=== PATIENT | female | born 1945 | race Caucasian/White ===

== ENCOUNTER → 2017-12-25 14:03 | Outpatient (CLI) | payer MEDICARE, SELFPAY ==
--- NOTE | 2017-12-25 | DI.US.S_ITS ---
PROCEDURE: US PERIPH VENOUS LOW EXTREM LT INDICATIONS: LEFT LOWER LEG PAIN TECHNIQUE: Real-time imaging, as well as color and pulse Doppler interrogation, were performed of the lower extremity deep veins from the inguinal ligament to the popliteal fossa. COMPARISON: None. FINDINGS: The deep veins are normally compressible, and free of intraluminal thrombus. Color and pulse Doppler demonstrate normal phasic intraluminal flow. There is normal augmentation response to distal compression maneuver. There is a 64 mm x 14 mm 23 mm fluid collection in the left medial superior lower extremity. IMPRESSION: 1. No deep venous thrombosis. 2. Fluid collection in the left lower extremity. This could represent a cyst. Other etiologies such as abscess or hematoma cannot be excluded, although less likely given homogenous appearance. Dictated by: Felipa Leon M.D. on 12/25/2017 at 14:35 Approved by: Felipa Leon M.D. on 12/25/2017 at 14:42
== END ==
PROVIDERS: Family Provider Physician Assistant; PCP Physician Assistant; Visit Provider Physician Assistant
DX: M79.662 Pain in left lower leg (principal)
CPT/HCPCS: 93971

== ENCOUNTER → 2018-02-28 08:08 | Outpatient (CLI) | payer MEDICARE, SELFPAY ==
--- NOTE | 2018-02-28 | DI.MG.S_ITS ---
BILATERAL DIGITAL SCREENING MAMMOGRAM 3D/2D WITH CAD: 02/28/2018 CLINICAL: Routine screening. Family history of breast cancer. Comparison is made to exams dated: 01/14/2017 mammogram, 01/10/2016 mammogram, and 01/06/2015 mammogram - [facility]. The tissue of both breasts is heterogeneously dense. This may lower the sensitivity of mammography. Current study was also evaluated with a Computer Aided Detection (CAD) system. There are benign vascular calcifications in both breasts. No significant masses, calcifications, or other findings are seen in either breast. There has been no significant interval change. IMPRESSION: There is no mammographic evidence of malignancy. A 1 year screening mammogram is recommended. This exam was interpreted at Station ID: [id number]. NOTE: For mammograms, a report in lay terms will be sent to the patient. Approximately 15% of breast malignancies will not be visualized mammographically. In the management of a palpable breast mass, a negative mammogram must not discourage biopsy of a clinically suspicious lesion. Electronically Signed By: Azeb castro/jamari:02/28/2018 10:03:38 letter sent: Normal Exam ACR BI-RADS Category 2: Benign Finding(s) 3342F
== END ==
PROVIDERS: Family Provider Physician Assistant; PCP Physician Assistant; Visit Provider Physician Assistant
DX: Z12.31 Encounter for screening mammogram for malignant neoplasm of breast (principal); Z80.3 Family history of malignant neoplasm of breast
CPT/HCPCS: 77063; 77067

== ENCOUNTER → 2018-12-30 14:00 | Outpatient (CLI) | payer MEDICARE, SELFPAY ==
--- NOTE | 2018-12-30 | DI.CT.S_ITS ---
PROCEDURE: CT ABDOMEN PELVIS W CON INDICATIONS: Right lower quadrant pain TECHNIQUE: After the administration of oral and intravenous contrast, 5 mm thick sections acquired from the diaphragms to the symphysis. 5 mm thick coronal and sagittal reformats were performed. For radiation dose reduction, the following was used: automated exposure control, adjustment of mA and/or kV according to patient size. COMPARISON: [facility], CT, CT-IVP, 02/28/2010, 8:45. FINDINGS: Image quality: Excellent. ABDOMEN: Lung bases: Lung bases are clear. Heart size is normal. Solid organs: Liver is normal in size and enhancement. Gallbladder appears normal. Biliary system is non-dilated. Pancreas enhances normally. Spleen is normal in size and enhancement. No adrenal nodules. Kidneys are normal in size and enhancement, without hydronephrosis. Peritoneum and bowel: Stomach, small bowel, and colon loops are normal in caliber and wall thickness. No free fluid or air. Nodes and vessels: No retroperitoneal or mesenteric adenopathy. Aorta and inferior vena cava are normal in caliber. Miscellaneous: No ventral hernias. PELVIS: Genitourinary: Bladder wall thickness is normal. Miscellaneous: No inguinal hernias or adenopathy. A normal or abnormal appendix could not be found. However there is no secondary CT evidence of acute appendicitis. Colonic obstipation is present on the right, most prominent at the cecum, as a potential etiology for the reported right lower quadrant pain. Bones: No suspicious bony lesions. No vertebral body compression fractures. IMPRESSION: 1. No CT evidence of acute appendicitis. 2. No identified adnexal pathology in this patient. Incidental note is made of a tarsal calcified small uterine fundal fibroid. 3. Asymmetric colonic obstipation most prominent at the right colon and best seen at the cecum. This is a reasonable potential etiology for reported persistent right lower quadrant pain. Dictated by: Sung Burgos M.D. on 12/30/2018 at 16:24 Approved by: Sung Burgos M.D. on 12/30/2018 at 16:28
== END ==
PROVIDERS: Family Provider Physician Assistant; PCP Physician Assistant; Visit Provider Physician Assistant
DX: R10.31 Right lower quadrant pain (principal); K59.00 Constipation, unspecified; D25.9 Leiomyoma of uterus, unspecified
CPT/HCPCS: 74177; Q9967

== ENCOUNTER → 2019-03-02 14:23 | Outpatient (CLI) | payer MEDICARE, SELFPAY ==
--- NOTE | 2019-03-02 | DI.MG.S_ITS ---
BILATERAL DIGITAL SCREENING MAMMOGRAM 3D/2D WITH CAD: 03/02/2019 CLINICAL: Routine screening. Family history of breast cancer. Comparison is made to exams dated: 02/28/2018 mammogram, 01/14/2017 mammogram, 01/10/2016 mammogram, 01/06/2015 mammogram, 01/04/2014 mammogram, and 11/03/2008 mammogram - [facility]. The tissue of both breasts is heterogeneously dense. This may lower the sensitivity of mammography. Current study was also evaluated with a Computer Aided Detection (CAD) system. There are benign vascular calcifications in both breasts. No significant masses, calcifications, or other findings are seen in either breast. There has been no significant interval change. IMPRESSION: There is no mammographic evidence of malignancy. A 1 year screening mammogram is recommended. This exam was interpreted at Station ID: [id number]. NOTE: For mammograms, a report in lay terms will be sent to the patient. Approximately 15% of breast malignancies will not be visualized mammographically. In the management of a palpable breast mass, a negative mammogram must not discourage biopsy of a clinically suspicious lesion. Electronically Signed By: Dustin alvarez/jamari:03/03/2019 09:21:01 letter sent: Normal Exam ACR BI-RADS Category 2: Benign Finding(s) 3342F
== END ==
PROVIDERS: PCP Physician Assistant; Visit Provider Physician Assistant
DX: Z12.31 Encounter for screening mammogram for malignant neoplasm of breast (principal); Z80.3 Family history of malignant neoplasm of breast
CPT/HCPCS: 77063; 77067

== ENCOUNTER → 2019-05-19 09:41 | Outpatient (CLI) | payer MEDICARE, SELFPAY ==
--- NOTE | 2019-05-19 | DI.RAD.S_ITS ---
PROCEDURE: XR KNEE LT 1TO2V INDICATIONS: PAIN IN LEFT KNEE TECHNIQUE: 2 views of the knee were acquired. COMPARISON: [facility], , KNEE 3V LEFT, 07/02/2013, 11:36. [facility], , KNEE 1-2 VIEWS LEFT, 01/29/2008, 9:00. FINDINGS: Bones: No fractures or dislocations. No suspicious bony lesions. Prior left total knee arthroplasty shows no evidence of device loosening or disruption. Soft tissues: No joint effusion. No suspicious soft tissue calcifications. IMPRESSION: No sign of arthroplasty device loosening, or adjacent joint effusion. Source of new pain is not identified. Dictated by: Sung Burgos M.D. on 05/19/2019 at 11:01 Approved by: Sung Burgos M.D. on 05/19/2019 at 11:01
== END ==
PROVIDERS: PCP Physician Assistant; Referring Provider Physician Assistant; Visit Provider Physician Assistant
DX: M25.562 Pain in left knee (principal); Z96.652 Presence of left artificial knee joint
CPT/HCPCS: 73560

== ENCOUNTER → 2019-05-26 15:09 | Outpatient (ROUT) | payer MEDICARE, SELFPAY | PROVIDERS: PCP Physician Assistant; Visit Provider Internal Medicine | DX: R39.9 Unspecified symptoms and signs involving the genitourinary system (principal) | CPT/HCPCS: 87077; 87086; 87186 ==

== ENCOUNTER → 2019-06-04 13:39 | Outpatient (ROUT) | payer MEDICARE, SELFPAY ==
[2019-06-04 14:09] LABS: Add Manual Diff / Slide Review NO; Basophils Absolute Auto 0 /uL (0-100); Basophils Percent Auto 0.7 % (0-2); Eosinophils Absolute Auto 100 /uL (0-450); Eosinophils Percent Auto 1.7 % (2-4); Hematocrit 37.4 % (36-46); Hemoglobin 12.9 g/dL (12.0-16.0); Lymphocytes Absolute Auto 1000 /uL (1100-4500); Lymphocytes Percent Auto 21.7 % (25-40); Mean Corpuscular HGB Conc 34.5 % (30-36); Mean Corpuscular Volume 98.6 fL (80-100); Monocytes Absolute Auto 500 /uL (0-900); Monocytes Percent Auto 10.9 % (3-14); Neutrophils Absolute Auto 3100 /uL (1500-7000); Platelet Count 247 X10^3/uL (150-400); Red Blood Cell Count 3.79 X10^6/uL (4.0-5.2); Red Cell Distribution Width 12.9 % (11.6-14.8); White Blood Cell Count 4.7 X10^3/uL (4.5-11.0)
[2019-06-04 14:15] LABS: Alanine Aminotransferase 17 IU/L (<35); Albumin 4.3 g/dL (3.5-5.0); Albumin Globulin Ratio 1.5 (1.0-2.8); Alkaline Phosphatase 75 U/L (38-126); Aspartate Aminotransferase 33 IU/L (14-36); Bilirubin Total 0.5 mg/dL (0.2-1.3); Blood Urea Nitrogen 10 mg/dL (7-17); Carbon Dioxide 27 mmol/L (22-32); Chloride 97 mmol/L (98-107); Estimated Glomerular Filt Rate > 60.0 mL/min (>60); Globulin 2.8 g/dL (1.7-4.1); Glucose 100 mg/dL (80-110); HEMOLYSIS < 15 (0-50); Potassium 4.5 mmol/L (3.4-5.1); Sodium 135 mmol/L (137-145); Total Protein 7.1 g/dL (6.3-8.2)
[2019-06-04 14:43] LABS: TSH w/ Reflex to FT4 1.67 uIU/mL (0.47-4.68)
== END ==
PROVIDERS: PCP Physician Assistant; Visit Provider Physician Assistant
DX: N30.00 Acute cystitis without hematuria (principal); E78.2 Mixed hyperlipidemia; I10 Essential (primary) hypertension; R53.83 Other fatigue; R39.9 Unspecified symptoms and signs involving the genitourinary system
CPT/HCPCS: 80053; 84443; 85025; 87086

== ENCOUNTER → 2019-12-31 07:50 | Outpatient (CLI) | payer MEDICARE, SELFPAY ==
[2019-12-31 08:30] LABS: Add Manual Diff / Slide Review NO; Basophils Absolute Auto 0 /uL (0-100); Basophils Percent Auto 0.5 % (0-2); Eosinophils Absolute Auto 100 /uL (0-450); Hematocrit 36.6 % (36-46); Hemoglobin 12.5 g/dL (12.0-16.0); Lymphocytes Absolute Auto 1000 /uL (1100-4500); Lymphocytes Percent Auto 23.4 % (25-40); Mean Corpuscular HGB Conc 34.1 % (30-36); Mean Corpuscular Hemoglobin 34.2 PG (26-34); Mean Corpuscular Volume 100.2 fL (80-100); Monocytes Absolute Auto 400 /uL (0-900); Neutrophils Absolute Auto 2800 /uL (1500-7000); Neutrophils Percent Auto 65.1 % (50-75); Platelet Count 209 X10^3/uL (150-400); Red Blood Cell Count 3.66 X10^6/uL (4.0-5.2); Red Cell Distribution Width 13.1 % (11.6-14.8); White Blood Cell Count 4.4 X10^3/uL (4.5-11.0)
[2019-12-31 08:41] LABS: Alanine Aminotransferase 14 IU/L (<35); Albumin Globulin Ratio 1.5 (1.0-2.8); Alkaline Phosphatase 71 U/L (38-126); Aspartate Aminotransferase 27 IU/L (14-36); BUN Creatinine Ratio 19.3 (6-22); Bilirubin Total 0.8 mg/dL (0.2-1.3); Blood Urea Nitrogen 11 mg/dL (7-17); Calcium 9.3 mg/dL (8.4-10.2); Carbon Dioxide 31 mmol/L (22-32); Chloride 102 mmol/L (98-107); Cholesterol 169 mg/dL (140-199); Estimated Glomerular Filt Rate > 60.0 mL/min (>60); Globulin 2.7 g/dL (1.7-4.1); Glucose 96 mg/dL (80-110); HDL Cholesterol 81 mg/dL (40-60); HEMOLYSIS < 15 (0-50); LDL Cholesterol Calculated 76 mg/dL (<100); Potassium 4.4 mmol/L (3.4-5.1); Sodium 137 mmol/L (137-145); Total Protein 6.7 g/dL (6.3-8.2); Triglycerides 60 mg/dL (35-150)
== END ==
PROVIDERS: PCP Physician Assistant; Referring Provider Physician Assistant; Visit Provider Physician Assistant
DX: I10 Essential (primary) hypertension (principal); E78.2 Mixed hyperlipidemia
CPT/HCPCS: 36415; 80053; 80061; 85025

== ENCOUNTER → 2020-03-15 10:23 | Outpatient (CLI) | payer MEDICARE, SELFPAY ==
--- NOTE | 2020-03-15 | DI.MG.S_ITS ---
BILATERAL DIGITAL SCREENING MAMMOGRAM 3D/2D WITH CAD: 03/15/2020 CLINICAL: Routine screening. Family history of breast cancer. Comparison is made to exams dated: 03/02/2019 mammogram, 02/28/2018 mammogram, and 01/14/2017 mammogram - [facility]. The tissue of both breasts is heterogeneously dense. This may lower the sensitivity of mammography. Current study was also evaluated with a Computer Aided Detection (CAD) system. There are benign vascular calcifications in both breasts. No significant masses, calcifications, or other findings are seen in either breast. There has been no significant interval change. IMPRESSION: BENIGN There is no mammographic evidence of malignancy. A 1 year screening mammogram is recommended. This exam was interpreted at Station ID: [id number]. NOTE: For mammograms, a report in lay terms will be sent to the patient. Approximately 15% of breast malignancies will not be visualized mammographically. In the management of a palpable breast mass, a negative mammogram must not discourage biopsy of a clinically suspicious lesion. Electronically Signed By: Luis Daniel Nevarez acr/penrad:03/15/2020 13:23:10 letter sent: Normal Exam ACR BI-RADS Category 2: Benign Finding(s) 3342F
== END ==
PROVIDERS: PCP Physician Assistant; Referring Provider Physician Assistant; Visit Provider Physician Assistant
DX: Z12.31 Encounter for screening mammogram for malignant neoplasm of breast (principal); Z80.3 Family history of malignant neoplasm of breast
CPT/HCPCS: 77063; 77067

== ENCOUNTER → 2020-08-15 08:18 | Outpatient (CLI) | payer OTHER, SELFPAY ==
[2020-08-15 09:20] LABS: Add Manual Diff / Slide Review NO; Basophils Absolute Auto 0 /uL (0-100); Basophils Percent Auto 0.9 % (0-2); Eosinophils Absolute Auto 100 /uL (0-450); Eosinophils Percent Auto 2.8 % (2-4); Hematocrit 35.7 % (36-46); Hemoglobin 12.4 g/dL (12.0-16.0); Lymphocytes Absolute Auto 1000 /uL (1100-4500); Lymphocytes Percent Auto 27.5 % (25-40); Mean Corpuscular HGB Conc 34.7 % (30-36); Mean Corpuscular Hemoglobin 34.5 PG (26-34); Mean Corpuscular Volume 99.5 fL (80-100); Monocytes Absolute Auto 400 /uL (0-900); Monocytes Percent Auto 11.2 % (3-14); Neutrophils Absolute Auto 2200 /uL (1500-7000); Neutrophils Percent Auto 57.6 % (50-75); Platelet Count 209 X10^3/uL (150-400); Red Blood Cell Count 3.59 X10^6/uL (4.0-5.2); Red Cell Distribution Width 12.8 % (11.6-14.8); White Blood Cell Count 3.8 X10^3/uL (4.5-11.0)
[2020-08-15 10:24] LABS: Alanine Aminotransferase 15 IU/L (<35); Albumin Globulin Ratio 1.4 (1.0-2.8); Alkaline Phosphatase 61 U/L (38-126); Aspartate Aminotransferase 29 IU/L (14-36); Bilirubin Total 0.7 mg/dL (0.2-1.3); Blood Urea Nitrogen 11 mg/dL (7-17); Calcium 9.7 mg/dL (8.4-10.2); Carbon Dioxide 26 mmol/L (22-32); Chloride 102 mmol/L (98-107); Cholesterol 183 mg/dL (140-199); Estimated Glomerular Filt Rate > 60.0 mL/min (>60); Globulin 2.8 g/dL (1.7-4.1); Glucose 92 mg/dL (80-110); HDL Cholesterol 78 mg/dL (40-60); HEMOLYSIS < 15 (0-50); LDL Cholesterol Calculated 94 mg/dL (<100); Potassium 4.6 mmol/L (3.4-5.1); Sodium 135 mmol/L (137-145); Total Protein 6.8 g/dL (6.3-8.2); Triglycerides 54 mg/dL (35-150)
== END ==
PROVIDERS: PCP Physician Assistant; Referring Provider Physician Assistant; Visit Provider Physician Assistant
DX: I10 Essential (primary) hypertension (principal); E78.2 Mixed hyperlipidemia
CPT/HCPCS: 36415; 80053; 80061; 85025

== ENCOUNTER → 2020-09-19 09:35 | Outpatient (CLI) | payer OTHER, SELFPAY ==
[2020-09-19 10:37] LABS: Add Manual Diff / Slide Review NO; Basophils Absolute Auto 0 /uL (0-100); Basophils Percent Auto 0.5 % (0-2); Eosinophils Absolute Auto 100 /uL (0-450); Eosinophils Percent Auto 1.7 % (2-4); Hematocrit 35.1 % (36-46); Hemoglobin 12.1 g/dL (12.0-16.0); Lymphocytes Absolute Auto 800 /uL (1100-4500); Lymphocytes Percent Auto 15.1 % (25-40); Mean Corpuscular HGB Conc 34.4 % (30-36); Mean Corpuscular Hemoglobin 34.3 PG (26-34); Mean Corpuscular Volume 99.5 fL (80-100); Monocytes Absolute Auto 600 /uL (0-900); Monocytes Percent Auto 10.5 % (3-14); Neutrophils Absolute Auto 3900 /uL (1500-7000); Neutrophils Percent Auto 72.2 % (50-75); Platelet Count 221 X10^3/uL (150-400); Red Blood Cell Count 3.52 X10^6/uL (4.0-5.2); Red Cell Distribution Width 12.8 % (11.6-14.8); White Blood Cell Count 5.4 X10^3/uL (4.5-11.0)
[2020-09-19 10:47] LABS: Alanine Aminotransferase 14 IU/L (<35); Albumin 4.1 g/dL (3.5-5.0); Albumin Globulin Ratio 1.5 (1.0-2.8); Alkaline Phosphatase 64 U/L (38-126); Aspartate Aminotransferase 27 IU/L (14-36); BUN Creatinine Ratio 18.9 (6-22); Bilirubin Total 0.5 mg/dL (0.2-1.3); Blood Urea Nitrogen 10 mg/dL (7-17); Calcium 9.2 mg/dL (8.4-10.2); Carbon Dioxide 27 mmol/L (22-32); Chloride 97 mmol/L (98-107); Cholesterol 172 mg/dL (140-199); Estimated Glomerular Filt Rate > 60.0 mL/min (>60); Globulin 2.8 g/dL (1.7-4.1); Glucose 100 mg/dL (80-110); HDL Cholesterol 66 mg/dL (40-60); HEMOLYSIS < 15 (0-50); LDL Cholesterol Calculated 92 mg/dL (<100); Potassium 4.1 mmol/L (3.4-5.1); Sodium 130 mmol/L (137-145); Total Protein 6.9 g/dL (6.3-8.2); Triglycerides 69 mg/dL (35-150)
== END ==
PROVIDERS: PCP Physician Assistant; Referring Provider Physician Assistant; Visit Provider Physician Assistant
DX: I10 Essential (primary) hypertension (principal); E78.2 Mixed hyperlipidemia
CPT/HCPCS: 36415; 80053; 80061; 85025

== ENCOUNTER → 2020-09-20 10:38 | Outpatient (CLI) | payer OTHER, SELFPAY ==
[2020-09-20 11:50] LABS: Appearance Urine UA SL CLOUDY; Bilirubin Urine UA NEGATIVE (NEGATIVE); Color Urine UA YELLOW; Glucose Urine UA NEGATIVE (Negative); Ketones Urine UA NEGATIVE (NEGATIVE); Leukocyte Esterase Urine UA 3+ (NEGATIVE); Nitrite Urine UA NEGATIVE (Negative); Occult Blood Urine UA TRACE-LYSED (Negative); Protein Urine UA NEGATIVE (Negative); Urobilinogen Urine UA 0.2 E.U./dL (0.2)
[2020-09-20 13:27] LABS: WBC Urine 30-100/HPF (0-5/HPF)
[2020-09-20 13:28] LABS: Bacteria Urine Many (>30); Culture Indicated Urine Specimen Cultured; RBC Urine 0-1/HPF (0-5/HPF)
== END ==
PROVIDERS: PCP Physician Assistant; Referring Provider Physician Assistant; Visit Provider Physician Assistant
DX: R35.0 Frequency of micturition (principal)
CPT/HCPCS: 36415; 81001; 87077; 87086; 87186

== ENCOUNTER → 2020-10-03 07:46 | Outpatient (CLI) | payer OTHER, SELFPAY ==
[2020-10-03 08:51] LABS: Add Manual Diff / Slide Review NO; Basophils Absolute Auto 0 /uL (0-100); Basophils Percent Auto 0.9 % (0-2); Eosinophils Absolute Auto 100 /uL (0-450); Eosinophils Percent Auto 2.6 % (2-4); Hematocrit 34.9 % (36-46); Hemoglobin 11.9 g/dL (12.0-16.0); Lymphocytes Absolute Auto 1000 /uL (1100-4500); Lymphocytes Percent Auto 25.9 % (25-40); Mean Corpuscular HGB Conc 34.2 % (30-36); Mean Corpuscular Hemoglobin 34.2 PG (26-34); Monocytes Absolute Auto 400 /uL (0-900); Monocytes Percent Auto 10.9 % (3-14); Neutrophils Absolute Auto 2200 /uL (1500-7000); Neutrophils Percent Auto 59.7 % (50-75); Platelet Count 237 X10^3/uL (150-400); Red Blood Cell Count 3.49 X10^6/uL (4.0-5.2); Red Cell Distribution Width 13.1 % (11.6-14.8); White Blood Cell Count 3.7 X10^3/uL (4.5-11.0)
[2020-10-03 09:35] LABS: Alanine Aminotransferase 13 IU/L (<35); Albumin 3.7 g/dL (3.5-5.0); Albumin Globulin Ratio 1.4 (1.0-2.8); Alkaline Phosphatase 54 U/L (38-126); Aspartate Aminotransferase 23 IU/L (14-36); Bilirubin Total 0.4 mg/dL (0.2-1.3); Blood Urea Nitrogen 14 mg/dL (7-17); Calcium 9.5 mg/dL (8.4-10.2); Carbon Dioxide 25 mmol/L (22-32); Chloride 101 mmol/L (98-107); Estimated Glomerular Filt Rate > 60.0 mL/min (>60); Globulin 2.6 g/dL (1.7-4.1); Glucose 99 mg/dL (80-110); HEMOLYSIS < 15 (0-50); Potassium 4.6 mmol/L (3.4-5.1); Sodium 133 mmol/L (137-145); Total Protein 6.3 g/dL (6.3-8.2)
== END ==
PROVIDERS: PCP Physician Assistant; Referring Provider Physician Assistant; Visit Provider Physician Assistant
DX: E87.1 Hypo-osmolality and hyponatremia (principal)
CPT/HCPCS: 36415; 80053; 85025

== ENCOUNTER → 2021-04-03 14:52 | Outpatient (CLI) | payer OTHER, SELFPAY ==
--- NOTE | 2021-04-03 14:53 | DI.MG.S_ITS ---
BILATERAL DIGITAL SCREENING MAMMOGRAM 3D/2D WITH CAD: 04/03/2021 CLINICAL: Routine screening. Family history of breast cancer. Comparison is made to exams dated: 03/15/2020 mammogram, 03/02/2019 mammogram, and 02/28/2018 mammogram - [facility]. The tissue of both breasts is heterogeneously dense. This may lower the sensitivity of mammography. Current study was also evaluated with a Computer Aided Detection (CAD) system. There are benign vascular calcifications in both breasts. No significant masses, calcifications, or other findings are seen in either breast. There has been no significant interval change. IMPRESSION: BENIGN There is no mammographic evidence of malignancy. A 1 year screening mammogram is recommended. This exam was interpreted at Station ID: [id number]. NOTE: For mammograms, a report in lay terms will be sent to the patient. Approximately 15% of breast malignancies will not be visualized mammographically. In the management of a palpable breast mass, a negative mammogram must not discourage biopsy of a clinically suspicious lesion. Electronically Signed By: Kirill Mike M.D., jr/jamari:04/03/2021 15:12:59 letter sent: Normal Exam ACR BI-RADS Category 2: Benign Finding(s) 3342F
== END ==
PROVIDERS: PCP Physician Assistant; Referring Provider Physician Assistant; Visit Provider Physician Assistant
DX: Z12.31 Encounter for screening mammogram for malignant neoplasm of breast (principal); Z80.3 Family history of malignant neoplasm of breast
CPT/HCPCS: 77063; 77067

== ENCOUNTER → 2022-04-05 09:18 | Outpatient (CLI) | payer OTHER, SELFPAY ==
--- NOTE | 2022-04-05 09:21 | DI.MG.S_ITS ---
BILATERAL DIGITAL SCREENING MAMMOGRAM 3D/2D WITH CAD: 04/05/2022 CLINICAL: Routine screening. Family history of breast cancer. Comparison is made to exams dated: 04/03/2021 mammogram, 03/15/2020 mammogram, and 03/02/2019 mammogram - [facility]. Both breasts are heterogeneously dense, which may obscure small masses (category c / 51-75% glandular tissue). Current study was also evaluated with a Computer Aided Detection (CAD) system. There are benign vascular calcifications in both breasts. No significant masses, calcifications, or other findings are seen in either breast. There has been no significant interval change. IMPRESSION: BENIGN There is no mammographic evidence of malignancy. A 1 year screening mammogram is recommended. Based on the Tyrer Cuzick model (a risk assessment model) the patient's lifetime risk is 4.0% and her 10 year risk is 0.0%. According to the ACR, ACS, and NCCN guidelines, an annual breast MRI exam along with mammogram is recommended if the patient's lifetime risk is 20% or greater. This exam was interpreted at Station ID: [id number]. NOTE: For mammograms, a report in lay terms will be sent to the patient. Approximately 15% of breast malignancies will not be visualized mammographically. In the management of a palpable breast mass, a negative mammogram must not discourage biopsy of a clinically suspicious lesion. Electronically Signed By: Kirill Mike M.D., jr/jamari:04/05/2022 11:02:03 letter sent: Normal Exam ACR BI-RADS Category 2: Benign Finding(s) 3342F
== END ==
PROVIDERS: PCP Physician Assistant; Referring Provider Physician Assistant; Visit Provider Physician Assistant
DX: Z12.31 Encounter for screening mammogram for malignant neoplasm of breast (principal); Z80.3 Family history of malignant neoplasm of breast
CPT/HCPCS: 77063; 77067

== ENCOUNTER → 2022-05-10 09:56 | Outpatient (CLI) | payer OTHER, SELFPAY ==
--- NOTE | 2022-05-10 | DI.CT.S_ITS ---
PROCEDURE: CT SINUS SCREEN WO CON INDICATIONS: Chronic pansinusitis TECHNIQUE: Noncontrast 3.0 mm axial images acquired from the frontal sinuses to the mid-sella, with coronal and sagittal reformats. For radiation dose reduction, the following was used: automated exposure control, adjustment of mA and/or kV according to patient size. COMPARISON: [facility], CT, SINUS WITHOUT CONTRAST, 03/14/2011, 9:18. [facility], CT, HEAD WITHOUT CONTRAST, 03/14/2011, 9:18. FINDINGS: Image quality: Excellent. Maxillary Sinuses: No bony remodeling or destruction. Sinuses are clear. Ethmoid Air Cells: No bony remodeling or destruction. Sinuses are clear. Sphenoid Sinuses: No bony remodeling or destruction. Sinuses are clear. Frontal Sinuses: No bony remodeling or destruction. Sinuses are clear. 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 Miscellaneous: Visualized intra-orbital contents are normal. 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 There is mild rightward nasal septal deviation. IMPRESSION: No significant active paranasal sinus disease is seen. 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 Dictated by: Liborio Dowling M.D. on 05/10/2022 at 9:58 Approved by: Liborio Dowling M.D. on 05/10/2022 at 10:00
== END ==
PROVIDERS: PCP Physician Assistant; Referring Provider Otolaryngology; Visit Provider Otolaryngology
DX: J32.4 Chronic pansinusitis (principal); R09.82 Postnasal drip; R09.89 Other specified symptoms and signs involving the circulatory and respiratory systems; R51.9 Headache, unspecified; J34.2 Deviated nasal septum; J34.3 Hypertrophy of nasal turbinates
CPT/HCPCS: 70486

== ENCOUNTER → 2022-06-28 14:04 | Outpatient (CLI) | payer MEDICARE, SELFPAY | PROVIDERS: PCP Physician Assistant; Visit Provider Nurse Practitioner Family | DX: R30.0 Dysuria (principal); N89.8 Other specified noninflammatory disorders of vagina | CPT/HCPCS: 87086; 87210 ==

== ENCOUNTER → 2022-10-13 10:14 | Outpatient (CLI) | payer MEDICARE, SELFPAY | PROVIDERS: PCP Physician Assistant; Visit Provider Registered Nurse | DX: R30.0 Dysuria (principal) | CPT/HCPCS: 87086; 87210 ==

== ENCOUNTER → 2023-01-16 09:21 | Outpatient (CLI) | payer MEDICARE, SELFPAY ==
--- NOTE | 2023-01-16 | DI.RAD.S_ITS ---
PROCEDURE: XR SHOULDER RT MIN 2V INDICATIONS: SHOULDER PAIN TECHNIQUE: 3 views of the shoulder were acquired. COMPARISON: None. FINDINGS: Bones: No fractures or dislocations. No suspicious bony lesions. Moderate acromioclavicular and glenohumeral joint degeneration. Visualized ribs appear intact. Soft tissues: Calcifications over the humeral head suspicious for rotator cuff calcific tendinitis. IMPRESSION: 1. Moderate osteoarthritis. 2. Suspect rotator cuff tendinitis. Dictated by: Rafiq Chambers M.D. on 01/16/2023 at 11:43 Approved by: Rfaiq Chambers M.D. on 01/16/2023 at 11:46
== END ==
PROVIDERS: PCP Physician Assistant; Referring Provider Physician Assistant; Visit Provider Physician Assistant
DX: M19.011 Primary osteoarthritis, right shoulder (principal)
CPT/HCPCS: 73030

== ENCOUNTER → 2023-02-07 11:47 | Outpatient (CLI) | payer MEDICARE, SELFPAY ==
[2023-02-07 12:10] LABS: Estimated Glomerular Filt Rate > 60 mL/min (>60)
== END ==
PROVIDERS: PCP Physician Assistant; Referring Provider Radiology Diagnostic Radiology; Visit Provider Radiology Diagnostic Radiology
DX: R10.31 Right lower quadrant pain (principal)
CPT/HCPCS: 36415; 82565

== ENCOUNTER → 2023-02-09 10:19 | Outpatient (CLI) | payer OTHER, SELFPAY ==
--- NOTE | 2023-02-09 10:21 | DI.CT.S_ITS ---
PROCEDURE: CT ABDOMEN PELVIS W CON INDICATIONS: Right lower quadrant pain TECHNIQUE: After the administration of oral and intravenous contrast, axial sections were acquired from the lung bases to the pubic symphysis. Coronal and sagittal reformats were performed. For radiation dose reduction, the following was used: automated exposure control, adjustment of mA and/or kV according to patient size. COMPARISON:[facility], CT, CT ABDOMEN PELVIS W CON, 12/30/2018, 15:06. FINDINGS: Image quality: Excellent. Lung bases: Unremarkable. Heart: No significant findings. ABDOMEN: Liver: Unremarkable. Gallbladder: Unremarkable. Biliary ducts: Unremarkable. Pancreas: Unremarkable. Spleen: Unremarkable. Adrenal Glands: Unremarkable. Kidneys and Ureters: Unremarkable. Stomach and Bowel: Stomach, small bowel loops, and colon are unremarkable. Moderately large diffuse fecal load. The appendix is not identified. There are no secondary signs of acute appendicitis. Peritoneum: No abnormal intraperitoneal fluid. No free air. Ventral Wall: No hernia. Abdominal Nodes: No retroperitoneal or mesenteric adenopathy by size criteria. Vessels: Aorta and inferior vena cava are normal in size. PELVIS: Pelvic Organs: There is a calcified uterine fibroid. There is possible diffuse thickening the endometrium of the uterus. This is not definite. Bladder: Unremarkable. Pelvic Nodes: No enlarged lymph nodes. Miscellaneous: No inguinal hernias are seen. Bones: Lumbar degenerative change. No lytic or blastic bony lesions. No compression fractures. IMPRESSION: 1. No acute abdominal process. 2. Moderately large fecal load. 3. Question diffuse thickening the endometrial cavity of the uterus. This is not definite. Comment: Recommend pelvic ultrasound for evaluation of the endometrial thickness Dictated by: John Garcia M.D. on 02/09/2023 at 14:30 Approved by: John Garcia M.D. on 02/09/2023 at 14:34
== END ==
PROVIDERS: PCP Physician Assistant; Referring Provider Physician Assistant; Visit Provider Physician Assistant
DX: R10.31 Right lower quadrant pain (principal); D25.9 Leiomyoma of uterus, unspecified
CPT/HCPCS: 74177; Q9967

== ENCOUNTER → 2023-02-19 10:15 | Outpatient (CLI) | payer OTHER, SELFPAY ==
--- NOTE | 2023-02-19 | DI.US.S_ITS ---
PROCEDURE: US PELVIC COMPLETE INDICATIONS: FOLLOW UP CT TECHNIQUE: Real-time scanning was performed of the pelvic organs, with image documentation. Additional endovaginal scanning was necessary due to incomplete visualization of the adnexal and endometrial structures by transabdominal scanning. COMPARISON: None. FINDINGS: Uterus: Uterus is anteverted and normal in size at 6.6 x 2.8 x 2.6 cm. The myometrium is heterogeneous. The endometrium measures 1 mm combined thickness. Ovaries: The right ovary measures 2.2 x 1.2 x 1.1 cm, with a calculated ovarian volume of 1.5 cc. The left ovary measures 1.6 x 1.1 x 0.8 cm, with a calculated ovarian volume of 0.7 cc. The ovaries have a normal sonographic appearance. Less than 12 follicles can be seen in each ovary. No adnexal masses are seen. Other: No pathologic free abdominal or pelvic fluid. Incidentally noted is a postvoid residual of 105 cc. IMPRESSION: 1. Unremarkable pelvic ultrasound. 2. Postvoid residual of 105 cc. Dictated by: Jack Melendez M.D. on 02/19/2023 at 15:01 Approved by: Jack Melendez M.D. on 02/19/2023 at 15:06
== END ==
PROVIDERS: PCP Physician Assistant; Referring Provider Physician Assistant; Visit Provider Physician Assistant
DX: Z09 Encounter for follow-up examination after completed treatment for conditions other than malignant neoplasm (principal); R10.31 Right lower quadrant pain
CPT/HCPCS: 76830; 76856

== ENCOUNTER → 2023-04-12 09:18 | Outpatient (CLI) | payer OTHER, SELFPAY ==
--- NOTE | 2023-04-12 | DI.MG.S_ITS ---
BILATERAL DIGITAL SCREENING MAMMOGRAM 3D/2D WITH CAD: 04/12/2023 CLINICAL: Routine screening. Family history of breast cancer. Comparison is made to exams dated: 04/05/2022 mammogram, 04/03/2021 mammogram, and 03/15/2020 mammogram - [facility]. Both breasts are heterogeneously dense, which may obscure small masses (category c / 51-75% glandular tissue). Current study was also evaluated with a Computer Aided Detection (CAD) system. There are benign vascular calcifications in both breasts. No significant masses, calcifications, or other findings are seen in either breast. There has been no significant interval change. IMPRESSION: BENIGN There is no mammographic evidence of malignancy. A 1 year screening mammogram is recommended. Based on the Tyrer Cuzick model (a risk assessment model) the patient's lifetime risk is 6.8% and her 10 year risk is 0.0%. According to the ACR, ACS, and NCCN guidelines, an annual breast MRI exam along with mammogram is recommended if the patient's lifetime risk is 20% or greater. This exam was interpreted at Station ID: [id number]. NOTE: For mammograms, a report in lay terms will be sent to the patient. Approximately 15% of breast malignancies will not be visualized mammographically. In the management of a palpable breast mass, a negative mammogram must not discourage biopsy of a clinically suspicious lesion. Electronically Signed By: Madan collins/jamari:04/12/2023 14:40:33 letter sent: Normal Exam ACR BI-RADS Category 2: Benign Finding(s) 3342F
== END ==
LOC: MAMMO 09:19
PROVIDERS: PCP Physician Assistant; Referring Provider Physician Assistant; Visit Provider Physician Assistant
DX: Z12.31 Encounter for screening mammogram for malignant neoplasm of breast (principal); Z80.3 Family history of malignant neoplasm of breast
CPT/HCPCS: 77063; 77067

== ENCOUNTER → 2024-04-30 11:30 | Outpatient (CLI) | payer MEDICARE, SELFPAY ==
--- NOTE | 2024-04-30 11:32 | DI.MG.S_ITS ---
BILATERAL DIGITAL SCREENING MAMMOGRAM 3D/2D WITH CAD: 04/30/2024 CLINICAL: Routine screening. Family history of breast cancer. Comparison is made to exams dated: 04/12/2023 mammogram, 04/05/2022 mammogram, 04/03/2021 mammogram, 03/15/2020 mammogram, and 03/02/2019 mammogram - [facility]. The breasts are heterogeneously dense, which may obscure small masses (category c / 51-75% glandular tissue). Current study was also evaluated with a Computer Aided Detection (CAD) system. There are benign vascular calcifications in both breasts. There also are benign post operative findings in the left breast. No significant masses, calcifications, or other findings are seen in either breast. There has been no significant interval change. IMPRESSION: BENIGN There is no mammographic evidence of malignancy. A 1 year screening mammogram is recommended. Based on the Tyrer Cuzick model (a risk assessment model) the patient's lifetime risk is 6.0% and her 10 year risk is 0.0%. According to the ACR, ACS, and NCCN guidelines, an annual breast MRI exam along with mammogram is recommended if the patient's lifetime risk is 20% or greater. This exam was interpreted at Station ID: [id number]. NOTE: For mammograms, a report in lay terms will be sent to the patient. Approximately 15% of breast malignancies will not be visualized mammographically. In the management of a palpable breast mass, a negative mammogram must not discourage biopsy of a clinically suspicious lesion. Electronically Signed By: Dustin alvarez/jamari:04/30/2024 15:51:02 letter sent: Normal Exam ACR BI-RADS Category 2: Benign
== END ==
PROVIDERS: PCP Physician Assistant; Referring Provider Physician Assistant; Visit Provider Physician Assistant
DX: Z12.31 Encounter for screening mammogram for malignant neoplasm of breast (principal); R92.1 Mammographic calcification found on diagnostic imaging of breast; R92.333 Mammographic heterogeneous density, bilateral breasts
CPT/HCPCS: 77063; 77067

== ENCOUNTER 2024-09-16 13:23 | Emergency (ER) | payer MEDICARE, SELFPAY ==
[2024-09-16] VITALS (12 sets, daily range): BP systolic 145–181; BP diastolic 69–98; PULSE 66–141; RESP 15–342; O2SAT 95–100; BMI 21.9
--- NOTE | 2024-09-16 13:34 | ED_ITS ---
HPI - Syncope General Chief Complaint: Syncope Stated Complaint: Syncope Time Seen by Provider: 09/16/24 13:33 History of Present Illness HPI narrative: 78-year-old female past medical history of hyperlipidemia hypertension presents to the emergency department via EMS from home for evaluation of syncope, she states that she had just finished using the restroom stood up she felt lightheaded dizzy and fell, she states that her found her states that it lasts for a little more than 1 minute, she states that she woke up with medics were called, they state that when they attempted to try to stand her again she had a when his syncope, no chest pain shortness of breath before or after. States it lasted less than 30 seconds. She states that she does have an appointment with Cardiology later this week, states that she also has an appointment for echo stress test Holter monitor as well. At time of evaluation patient just stating that she feels little weak, she is complaining of some neck pain patient was placed in C-collar for precautions, otherwise she is not complaining of any other symptoms, she is NIH of 0 no focal deficits not on any blood thinners. Related Data Home Medications ?Medication ?Instructions ?Recorded ?Confirmed simvastatin 20 mg tablet 10 mg PO HS ##0 11/23/1105/07 nebivolol 2.5 mg tablet (Bystolic) 2.5 mg PO QDAY #0 t abs 01/09/16 10/13/22 lisinopril 10 mg tablet 10 mg PO DAILY 06/28/22 0705/07 Previous Rx's ?Medication ?Instructions ?Recorded amoxicillin 875 mg-potassium 1 tab PO BID 5 days #10 t abs 09/16/24 clavulanate 125 mg tablet metoprolol succinate 50 mg capsule 50 mg PO DAILY 1 mo [facility] #30 ea 09/16/24 sprinkle, ext. release 24 hr Allergies Allergy/AdvReac Type Severity Reaction Status Date / Time AVALOX Allergy Unknown Uncoded 10/13/22 10:25 seasonal allergies Allergy Uncoded 09/16/24 13:40 Review of Systems Review of Systems Narrative: General: Denies fever, chills, weight loss HEENT: Positive nose pain Denies headache, eye drainage, eye irritation, sore throat, voice change Cardiovascular: Denies any chest pain, palpitations, tachycardia Respiratory: Denies any shortness of breath, cough, wheeze, stridor GI/: Denies any abdominal pain, nausea, vomiting, diarrhea, bright red blood per rectum, melanotic stools, urinary frequency, urinary retention, dysuria, hematuria MSK: Denies any joint pain, muscle pains, swelling Skin: Denies any rashes, lesions, discoloration Neuro: Positive syncope Psych: Denies SI/HI Patient History Social History Smoking Status: Never smoker Exam Narrative Exam Narrative: General: Cooperative, well-developed, not in acute distress HEENT: Superficial abrasion noted to the bridge of the nose, no septal hematoma, PERRLA, normal sclera, eyelids normal Neck: Active full range of motion, atraumatic Chest: Normal to inspection, negative crepitus, no overlying erythema ecchymosis Respiratory: Normal respiratory effort, not in acute respiratory distress, clear to auscultation bilaterally negative cough, wheeze, tachypnea, rhonchi, rales Cardiology: Regular rate rhythm negative gallop, murmur, rubs GI/: No tenderness to palpation, soft, non rigid, normal to inspection, exam deferred MSK: Patient placed in C-collar for precautions but no palpable tenderness to palpation of the midline spine, Full active range of motion in all 4 extremities, atraumatic, no tenderness to palpation of any bony prominences Skin: No rashes or lesions noted Neuro: Alert awake oriented x3, moves all 4 extremities spontaneously, cranial nerves intact, able to answer all questions appropriately follows commands appropriately Psych: Cooperative, negative suicidal or homicidal ideations Initial Vital Signs Initial Vital Signs: Vital Signs Pulse Rate 66 09/16/24 13:39 Respiratory Rate 16 09/16/24 13:39 Blood Pressure 169/73 H 09/16/24 13:39 Pulse Oximetry 100 09/16/24 13:39 Oxygen Delivery Method Room Air 09/16/24 13:39 Course Orders Ordered: ED Orders 09/16/24 13:37 CT facial bones wo con Stat XR chest 1V Stat EKG-12 Lead Stat 09/16/24 13:38 CT cervical spine wo con Stat CT head/brain wo con Stat 09/16/24 13:53 Complete Blood Count AUTO DIFF Stat Comprehensive Metabolic Panel Stat Lipase Stat NT-proBNP (BNP-Adult 18+) Stat PTT Partial Thromboplastin German Stat Prothrombin Time INR Stat Troponin & CK Cardiac Panel Stat 09/16/24 15:13 EKG-12 Lead Stat Discontinued Medications Sodium Chloride (Normal Saline 0.9%) 1,000 mls @ 1,000 mls/hr IV BOLUS ONE Stop: 09/16/24 14:36 Last Infusion: 09/16/24 14:27 Dose: Infused Documented By: Admin: 09/16/24 13:37 Dose: 1,000 mls/hr Documented By: MINI Magnesium Sulfate (Magnesium Sulfate) 2 gm in 50 mls @ 150 mls/hr IV NOW ONE Stop: 09/16/24 16:13 Last Admin: 09/16/24 16:43 Dose: 150 mls/hr Documented By: MINI Co-signed By: SHAWNA Metoprolol Tartrate (Metoprolol Tartrate 5 Mg/5 Ml Inj) 5 mg IV NOW ONE Stop: 09/16/24 15:55 Last Admin: 09/16/24 16:42 Dose: 5 mg Documented By: MINI Vital Signs Vital signs: Vital Signs - 8 hr 09/16/24 13:39 09/16/24 13:57 09/16/24 14:09 Pulse Rate 66 79 81 Respiratory Rate 16 24 342 H Blood Pressure 169/73 H Pulse Oximetry 100 97 99 Oxygen Delivery Method Room Air 09/16/24 14:10 09/16/24 14:10 09/16/24 14:30 Pulse Rate 81 Respiratory Rate 21 Blood Pressure 171/79 H 156/73 H Pulse Oximetry 98 Oxygen Delivery Method 09/16/24 14:30 09/16/24 15:00 09/16/24 15:00 Pulse Rate 78 75 Respiratory Rate 16 18 Blood Pressure 145/69 H Pulse Oximetry 97 98 Oxygen Delivery Method 09/16/24 15:30 09/16/24 15:30 09/16/24 16:00 Pulse Rate 140 H 141 H Respiratory Rate 15 16 Blood Pressure 181/98 H Pulse Oximetry 97 97 Oxygen Delivery Method 09/16/24 16:00 09/16/24 16:30 09/16/24 16:30 Pulse Rate 134 H Respiratory Rate 18 Blood Pressure 160/91 H 156/76 H Pulse Oximetry 98 Oxygen Delivery Method MDM - Syncope Differential Diagnosis Differential diagnosis: Likely syncope due to orthostatic hypotension, vasovagal syncope, subarachnoid hemorrhage, dehydration and other (ACS, pneumonia, electrolyte abnormality) Lab Data 09/16/24 13:53 09/16/24 13:53 Labs: Lab Results 09/16/24 Range/Units 13:53 WBC 7.0 (4.5-11.0) X10^3/uL RBC 3.38 L (4.0-5.2) X10^6/uL Hgb 11.6 L (12.0-16.0) g/dL Hct 33.8 L (36-46) % MCV 100.1 H (80-100) fL MCH 34.3 H (26-34) PG MCHC 34.3 (30-36) % RDW 12.9 (11.6-14.8) % Plt Count 207 (150-400) X10^3/uL Neut % (Auto) 67.7 (50-75) % Lymph % (Auto) 21.5 L (25-40) % Clark % (Auto) 8.7 (3-14) % Eos % (Auto) 1.7 L (2-4) % Baso % (Auto) 0.4 (0-2) % Neut # (Auto) 4700 (5364-7258) /uL Lymph # (Auto) 1500 (1532-1708) /uL Clark # (Auto) 600 (0-900) /uL Eos # (Auto) 100 (0-450) /uL Baso # (Auto) 0 (0-100) /uL PT 12.4 (9.4-12.5) SECONDS INR 1.1 (0.9-1.3) APTT 28 (25.1-36.5) SECONDS Sodium 131 L (137-145) mmol/L Potassium 3.9 (3.4-5.1) mmol/L Chloride 100 (98-107) mmol/L Carbon Dioxide 21 L (22-32) mmol/L BUN 17 (7-17) mg/dL Creatinine 0.65 (0.52-1.04) mg/dL Estimated GFR > 60 (>60) mL/min BUN/Creatinine Ratio 26.2 H (6-22) Glucose 132 H (70-99) mg/dL Calcium 9.3 (8.4-10.2) mg/dL Total Bilirubin 0.7 (0.2-1.3) mg/dL AST 29 (14-36) IU/L ALT 15 (<35) IU/L Alkaline Phosphatase 74 (38-126) U/L Total Creatine Kinase 58 (30-135) U/L Troponin I < 0.012 (0.01-0.034) ng/mL NT-Pro-B Natriuret Pep 398 (<450) pg/mL Total Protein 6.3 (6.3-8.2) g/dL Albumin 3.9 (3.5-5.0) g/dL Globulin 2.4 (1.7-4.1) g/dL Albumin/Globulin Ratio 1.6 (1.0-2.8) Lipase 133 (23-300) U/L Imaging Data Chest x-ray: Radiologist's Impression: [address] [address] XRay Report Signed Patient: Milly Camarena MR#: [id number] : 1945 Acct:[id number] Age/Sex: 78 / F Date of Service: 09/16/24 Loc: ED Accession Number: [id number] Procedure: XR chest 1V Ordering Provider: Babak Flores D.O. PROCEDURE: XR CHEST 1V INDICATIONS: syncope TECHNIQUE: One view of the chest was acquired. COMPARISON: [facility], CT, CT CERVICAL SPINE WO CON, 09/16/2024, 13:56. FINDINGS: Surgical changes and devices: None. Lungs and pleura: Very mild interstitial pulmonary edema is better seen in the apical portion of the cervical spine CT. Biapical pleural parenchymal scarring. No focal pulmonary infiltrates. No pleural effusions or pneumothorax. Mediastinum: Mediastinal contours appear normal. Moderate cardiomegaly. Bones and chest wall: No suspicious bony lesions. Overlying soft tissues appear unremarkable. IMPRESSION: Moderate cardiomegaly. Very mild pulmonary edema. CT scan - head: Radiologist's Impression: Impression: No acute intracranial pathology CT - cervical spine: Radiologist's Impression: [address] [address] [address] Scan Report Signed Patient: Milly Camarena MR#: [id number] : 1945 Acct:[id number] Age/Sex: 78 / F Date of Service: 09/16/24 Loc: ED Accession Number: [id number] Procedure: CT cervical spine wo con Ordering Provider: Babak Flores D.O. PROCEDURE: CT CERVICAL SPINE WO CON INDICATIONS: trauma TECHNIQUE: Noncontrast 3 mm thick sections acquired from the skull base to the T4 level. Sagittal and coronal reformats were then constructed. For radiation dose reduction, the following was used: automated exposure control, adjustment of mA and/or kV according to patient size. COMPARISON: None. FINDINGS: Image quality: Excellent. Bones: No fractures or dislocations. Diffuse cervical spondylitic change. Diffuse osteopenia. Visualized superior ribs are intact. Soft tissues: Prevertebral soft tissues are normal in thickness. No paravertebral hematomas. No apical pneumothoraces. Mild interstitial pulmonary edema. Biapical pleural parenchymal scarring. IMPRESSION: 1. No displaced fracture or traumatic subluxation. 2. Mild congestive heart failure. 3. Cervical spondylosis. CT facial bones: Radiologist's Impression: [place] [address] CT Scan Report Signed Patient: Milly Camarena MR#: [id number] : 1945 Acct:[id number] Age/Sex: 78 / F Date of Service: 09/16/24 Loc: ED Accession Number: [id number] Procedure: CT facial bones wo con Ordering Provider: Babak Flores D.O. PROCEDURE: CT FACIAL BONES WO CON INDICATIONS: trauma, fell and hit nose TECHNIQUE: Noncontrast 2.5 mm thick axial images acquired from the mandible through the frontal sinuses, with coronal and sagittal reformatting. For radiation dose reduction, the following was used: automated exposure control, adjustment of mA and/or kV according to patient size. COMPARISON: None. FINDINGS: Image quality: Excellent. Bones and teeth: Orbital arechiga are intact. Subtle nasal bone fracture. No nasal septal fracture. Visualized portions of the mandible demonstrate no fractures or subluxation. Zygomatic arches are intact. Pterygoid plates are intact. Visualized portions of the skull base and auditory canals are intact. Sinuses: Paranasal sinuses are aerated, without fluid levels, mucosal thickening, or mucoceles. Mastoid air cells are aerated. Soft tissues: No edema, masses, or fluid collections. There is air present superficial to the left nasal bone related to the nasal bone fracture. No enlarged lymph nodes. No soft tissue lacerations or debris. Vascular: Visualized vascular structures appear normal in the absence of contrast. Bony vascular foramina and canals are intact. IMPRESSION: 1. Subtle nasal bone fracture. 2. No other facial bone fractures or mandibular fractures. ECG Data Interpretation: EKG interpreted by ED physician, sinus 61 beats per minute QTC [address] changes no STEMI MDM Narrative Medical decision making narrative: 78-year-old female with a past medical history of hyperlipidemia hypertension presenting from home via EMS for evaluation of syncope, she states that she was using the restroom stood up felt lightheaded dizzy passed out, states that was in the room did not see this syncopal episode but states that it lasted no longer than 1 minute, she states that when medics were called she was told that she passed out again when they attempted to get her to stand, this lasted only for a few seconds, she now just states she feels a little weak, she is complaining of some neck pain was placed in C-collar immediately for precautions, otherwise no focal deficits no tenderness to palpation of any bony prominences, patient does state that she has an appointment with Cardiology for stress test echo Holter monitor this week. Denies any other symptoms at this time. Patient had imaging lab work EKG performed here in the emergency department. EKG nonischemic in nature. During patient's time here she had a rhythm changed, it was noted that she was now in new onset AFib. She is asymptomatic, patient was given 5 mg Lopressor, 50 mg p.o. metoprolol. Patient remained controlled rate controlled in the 100s. Patient's imaging without any intracranial hemorrhage CT face did show nasal bone fracture we will start patient prophylactically on Augmentin, no septal hematoma noted. CHADS-VASc 3. 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 Patient will be started on metoprolol and instructed to follow up with Cardiology for her scheduled appointment. She was given strict return precautions she verbalized understanding of this and agrees to being discharged home with outpatient follow up. Discharge Plan Departure Patient Disposition: Home Clinical Impression: Syncope, Fracture of nasal bone, New onset a-fib Instructions: DI for Atrial Fibrillation Prescriptions: New metoprolol succinate 50 mg capsule,sprinkle,ER 24hr 50 mg PO DAILY 30 Days Qty: 30 0RF amoxicillin-pot clavulanate 875-125 mg tablet 1 tab PO BID 5 Days Qty: 10 0RF No Action lisinopril 10 mg tablet 10 mg PO DAILY simvastatin 20 MG tablet 10 mg PO HS Qty: 0 nebivolol [Bystolic] 2.5 MG tablet 2.5 mg PO QDAY Qty: 0 Referrals: Litzy Krueger PA-C [Primary Care Provider, Medical] Stand Alone Forms: Patient Portal/API
[2024-09-16] MEDS: SODIUM CHLORIDE 0.9% 1,000 ML 1000 ML IV (13:37)
--- NOTE | 2024-09-16 13:37 | EKG_ITS ---
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
--- NOTE | 2024-09-16 13:37 | DI.RAD.S_ITS ---
PROCEDURE: XR CHEST 1V INDICATIONS: syncope TECHNIQUE: One view of the chest was acquired. COMPARISON: [facility], CT, CT CERVICAL SPINE WO CON, 09/16/2024, 13:56. FINDINGS: Surgical changes and devices: None. Lungs and pleura: Very mild interstitial pulmonary edema is better seen in the apical portion of the cervical spine CT. Biapical pleural parenchymal scarring. No focal pulmonary infiltrates. No pleural effusions or pneumothorax. Mediastinum: Mediastinal contours appear normal. Moderate cardiomegaly. Bones and chest wall: No suspicious bony lesions. Overlying soft tissues appear unremarkable. IMPRESSION: Moderate cardiomegaly. Very mild pulmonary edema. Dictated by: John Garcia M.D. on 09/16/2024 at 14:42 Approved by: John Garcia M.D. on 09/16/2024 at 14:44
--- NOTE | 2024-09-16 13:37 | DI.CT.S_ITS ---
PROCEDURE: CT FACIAL BONES WO CON INDICATIONS: trauma, fell and hit nose TECHNIQUE: Noncontrast 2.5 mm thick axial images acquired from the mandible through the frontal sinuses, with coronal and sagittal reformatting. For radiation dose reduction, the following was used: automated exposure control, adjustment of mA and/or kV according to patient size. COMPARISON: None. FINDINGS: Image quality: Excellent. Bones and teeth: Orbital arechiga are intact. Subtle nasal bone fracture. No nasal septal fracture. Visualized portions of the mandible demonstrate no fractures or subluxation. Zygomatic arches are intact. Pterygoid plates are intact. Visualized portions of the skull base and auditory canals are intact. Sinuses: Paranasal sinuses are aerated, without fluid levels, mucosal thickening, or mucoceles. Mastoid air cells are aerated. Soft tissues: No edema, masses, or fluid collections. There is air present superficial to the left nasal bone related to the nasal bone fracture. No enlarged lymph nodes. No soft tissue lacerations or debris. Vascular: Visualized vascular structures appear normal in the absence of contrast. Bony vascular foramina and canals are intact. IMPRESSION: 1. Subtle nasal bone fracture. 2. No other facial bone fractures or mandibular fractures. Dictated by: John Garcia M.D. on 09/16/2024 at 14:35 Approved by: John Garcia M.D. on 09/16/2024 at 14:37
--- NOTE | 2024-09-16 13:38 | DI.CT.S_ITS ---
PROCEDURE: CT CERVICAL SPINE WO CON INDICATIONS: trauma TECHNIQUE: Noncontrast 3 mm thick sections acquired from the skull base to the T4 level. Sagittal and coronal reformats were then constructed. For radiation dose reduction, the following was used: automated exposure control, adjustment of mA and/or kV according to patient size. COMPARISON: None. FINDINGS: Image quality: Excellent. Bones: No fractures or dislocations. Diffuse cervical spondylitic change. Diffuse osteopenia. Visualized superior ribs are intact. Soft tissues: Prevertebral soft tissues are normal in thickness. No paravertebral hematomas. No apical pneumothoraces. Mild interstitial pulmonary edema. Biapical pleural parenchymal scarring. IMPRESSION: 1. No displaced fracture or traumatic subluxation. 2. Mild congestive heart failure. 3. Cervical spondylosis. Dictated by: John Garcia M.D. on 09/16/2024 at 14:38 Approved by: John Garcia M.D. on 09/16/2024 at 14:41
--- NOTE | 2024-09-16 13:38 | DI.CT.S_ITS ---
PROCEDURE: CT HEAD/BRAIN WO CON INDICATIONS: Trauma TECHNIQUE: Noncontrast 4.5 mm thick angled axial sections acquired from the foramen magnum to the vertex, with coronal and sagittal reformats. For radiation dose reduction, the following was used: automated exposure control, adjustment of mA and/or kV according to patient size. COMPARISON: None. FINDINGS: Image quality: Diagnostic. CSF spaces: Basal cisterns are patent. No extra-axial fluid collections. The ventricles are symmetric in size and shape. Brain: No intracranial bleeds or mass effect. There is cerebral volume loss, with resultant ventricular and sulcal prominence. There are periventricular and deep white matter chronic small vessel ischemic changes. There is intracranial internal carotid artery atherosclerosis. Skull and face: Calvarium and visualized facial bones appear intact, without suspicious lesions. Sinuses: Visualized sinuses and mastoids are clear. IMPRESSION: No acute intracranial pathology. Dictated by: John Garcia M.D. on 09/16/2024 at 14:32 Approved by: John Garcia M.D. on 09/16/2024 at 14:35
[2024-09-16 14:05] LABS: Add Manual Diff / Slide Review NO; Basophils Absolute Auto 0 /uL (0-100); Basophils Percent Auto 0.4 % (0-2); Eosinophils Absolute Auto 100 /uL (0-450); Eosinophils Percent Auto 1.7 % (2-4); Hematocrit 33.8 % (36-46); Hemoglobin 11.6 g/dL (12.0-16.0); Lymphocytes Absolute Auto 1500 /uL (1100-4500); Lymphocytes Percent Auto 21.5 % (25-40); Mean Corpuscular HGB Conc 34.3 % (30-36); Mean Corpuscular Hemoglobin 34.3 PG (26-34); Mean Corpuscular Volume 100.1 fL (80-100); Monocytes Absolute Auto 600 /uL (0-900); Monocytes Percent Auto 8.7 % (3-14); Neutrophils Absolute Auto 4700 /uL (1500-7000); Neutrophils Percent Auto 67.7 % (50-75); Platelet Count 207 X10^3/uL (150-400); Red Blood Cell Count 3.38 X10^6/uL (4.0-5.2); Red Cell Distribution Width 12.9 % (11.6-14.8)
[2024-09-16 14:20] LABS: Alanine Aminotransferase 15 IU/L (<35); Albumin 3.9 g/dL (3.5-5.0); Albumin Globulin Ratio 1.6 (1.0-2.8); Alkaline Phosphatase 74 U/L (38-126); Aspartate Aminotransferase 29 IU/L (14-36); BUN Creatinine Ratio 26.2 (6-22); Bilirubin Total 0.7 mg/dL (0.2-1.3); Blood Urea Nitrogen 17 mg/dL (7-17); Calcium 9.3 mg/dL (8.4-10.2); Carbon Dioxide 21 mmol/L (22-32); Chloride 100 mmol/L (98-107); Creatine Kinase 58 U/L (30-135); Estimated Glomerular Filt Rate > 60 mL/min (>60); Globulin 2.4 g/dL (1.7-4.1); Glucose 132 mg/dL (70-99); HEMOLYSIS < 15 (0-50); INR 1.1 (0.9-1.3); Lipase 133 U/L (23-300); Potassium 3.9 mmol/L (3.4-5.1); Prothrombin Time 12.4 SECONDS (9.4-12.5); Sodium 131 mmol/L (137-145); Total Protein 6.3 g/dL (6.3-8.2)
[2024-09-16 14:23] LABS: PTT Partial Thromboplastin Tim 28 SECONDS (25.1-36.5)
[2024-09-16 14:28] LABS: NT-proBNP (BNP-Adult 18+) 398 pg/mL (<450)
[2024-09-16 14:32] LABS: Troponin I < 0.012 ng/mL (0.01-0.034)
--- NOTE | 2024-09-16 15:18 | PC.NURSE ---
c-collar removed per provider verbal order
--- NOTE | 2024-09-16 15:26 | EKG_ITS ---
[place] [id number] [place] [id number] Test Date: 2024-09-16 Pat Name: Milly Camarena Department: [facility] Room: Gender: Female [employer] Winder: : 1945 Requested By: Order Number: [id number] Reading MD: Stuart Barry Measurements Intervals [place] Rate: 137 P: [place]: QRS: 103 QRSD: 90 T: -66 QT: 312 QTc: 471 Interpretive Statements Atrial fibrillation with rapid ventricular response Rightward axis Septal infarct , age undetermined Marked ST abnormality, possible inferior subendocardial injury Electronically Signed On 09-17-2024 18:59:46 PDT by Stuart Barry
--- NOTE | 2024-09-16 15:44 | PC.NURSE ---
This AIRCRAFT ORDNANCE SYSTEMS MECHANIC placed a purewick at [phone] at RN's request.
[2024-09-16] MEDS: METOPROLOL TARTRATE 5 MG/5 ML INJ IV (16:42)
[2024-09-16] MEDS: MAGNESIUM SULFATE 2 GM/50 ML PIGGYBACK IV (16:43)
[2024-09-16] MEDS: METOPROLOL ER 50 MG TABLET PO (17:16)
[2024-09-16] MEDS: AMOXICILLIN/CLAV 875/125 MG 1 TAB PO (18:24)
--- NOTE | 2024-09-16 18:39 | PC.NURSE ---
patient standing up to transfer to the wheelchair and states that she feels good enough to go home.
== END 2024-09-16 18:41 | disposition home or self-care (01) ==
PROVIDERS: Emergency Provider Student in an Organized Health Care Education/Training Program; PCP Physician Assistant
DX: S02.2XXA Fracture of nasal bones, initial encounter for closed fracture (principal); I48.91 Unspecified atrial fibrillation; R55 Syncope and collapse; R42 Dizziness and giddiness; M54.2 Cervicalgia
CPT/HCPCS: 70450; 70486; 71045; 72125; 80053; 82550; 83690; 83880; 84484; 85025; 85610; 85730; 93005; 96361; 96365; 96375; 99284; J3475

== ENCOUNTER → 2024-11-21 10:14 | Outpatient (CLI) | payer MEDICARE, SELFPAY ==
[2024-11-23 12:12] LABS: Free Kappa Lt Chains, Serum 18.8 mg/L (3.3-19.4); Free Lambda Lt Chains,Serum 11.6 mg/L (5.7-26.3)
[2024-11-24 16:08] LABS: Albumin 3.8 g/dL (2.9-4.4); Alpha-1-Globulin 0.2 g/dL (0.0-0.4); Alpha-2-Globulin 0.6 g/dL (0.4-1.0); Gamma Globulin 1.0 g/dL (0.4-1.8)
== END ==
PROVIDERS: PCP Family Medicine; Referring Provider Internal Medicine; Visit Provider Internal Medicine
DX: I42.9 Cardiomyopathy, unspecified (principal)
CPT/HCPCS: 36415; 83883; 84155; 84165

== ENCOUNTER → 2025-04-02 10:35 | Outpatient (CLI) | payer MEDICARE, SELFPAY | PROVIDERS: PCP Family Medicine; Referring Provider Nurse Practitioner Family; Visit Provider Nurse Practitioner Family | DX: R30.0 Dysuria (principal) | CPT/HCPCS: 87077; 87086; 87186 ==